=== PATIENT | female | born 1940 | race Caucasian/White ===

== ENCOUNTER 2022-01-26 12:50 | Emergency (ER) | payer MEDICARE ==
[~2022-01-26] VITALS: Ht 160 cm; Wt 61.2 kg
[2022-01-26] MEDS ORDERED: DOXY-336 PO (14:05)
[2022-01-26] MEDS ORDERED: PRED20TA3 PO (14:05)
[2022-01-26 14:17] VITALS: BP 147/67
[2022-01-26] MEDS ORDERED: PREDNISONE 20 MG TABLET PO ONE (14:30)
[2022-01-26] MEDS ORDERED: DOXYCYCLINE HYCLATE 100 MG TABLET PO SCH (14:30)
== END 2022-01-26 14:14 | disposition home or self-care (01) ==
LOC: EDH 12:50
DX: J44.1 Chronic obstructive pulmonary disease with (acute) exacerbation (principal); I10 Essential (primary) hypertension
CPT/HCPCS: 71045